=== PATIENT | female | born 1980 | race Caucasian/White ===

== ENCOUNTER → 2020-03-20 09:51 | Outpatient (CLI) | payer BC, SELFPAY ==
--- NOTE | 2020-03-20 09:53 | VDLE_ITS ---
Reason For Study: Pain, Swelling RIGHT LEFT CFV is compressible, spontaneous, phasic, CFV is compressible, spontaneous, phasic, competent and demonstrates normal competent, and demonstrates normal augmentation. augmentation. FV is compressible, spontaneous, phasic, FV is compressible, spontaneous, phasic, competent and demonstrates normal competent and demonstrates normal augmentation. augmentation. POP V is compressible, spontaneous, phasic, POP V is compressible, spontaneous, phasic, competent and demonstrates normal competent and demonstrates normal augmentation. augmentation. T/P Trunk is compressible. T/P Trunk is compressible. PTV is compressible. PTV is compressible. RT PerV is compressible. LT PerV is compressible. SFJ is INCOMPETENT and measures 0.88 x 0.98 GSV previous EVLA. cm. SFJ is INCOMPETENT and measures 0.82 x 0.81 GSV proximal thigh measures 0.68 x 0.76 cm. cm. GSV at knee measures 0.33 x 0.36 cm. SSV proximal calf is competent and measures GSV INCOMPETENT throughout for greater than 0.29 x 0.29 cm. 0.5 seconds. ASV proximal thigh is INCOMPETENT for greater than 0.5 seconds and measures 0.48 x 0.51 cm. ASV mid thigh is INCOMPETENT for greater than 0.5 seconds and measures 0.29 x 0.22 cm. ASV proximal calf is INCOMPETENT for greater than 0.5 seconds and measures 0.20 x 0.19 cm. SSV proximal calf is competent and measures 0.30 x 0.29 cm. Procedure This is a venous duplex using B-mode, color flow and spectral Doppler. Exam performed in department. Patient was scanned in reverse Trendelenburg position during reflux assessment. Interpretation Summary Bilateral no dvt. Right gsv 7.6 and reflux throughout and ASV 5.1 and reflux. Ordering Physician: Fran Waite Referring Physician: MD Manav Oh Performed By: Lavonne Lovett RVT
== END ==
PROVIDERS: PCP Family Medicine; Referring Provider Surgery Vascular Surgery; Visit Provider Surgery Vascular Surgery
DX: M79.89 Other specified soft tissue disorders (principal); M79.606 Pain in leg, unspecified
CPT/HCPCS: 93970

== ENCOUNTER → 2021-06-19 | Outpatient (CLI) | payer BC, SELFPAY | END | disposition home or self-care (01) | LOC: PSN 08:41 | PROVIDERS: PCP Family Medicine; Visit Provider Surgery | DX: Z20.822 Contact with and (suspected) exposure to COVID-19 (principal) | CPT/HCPCS: 87635; C9803; U0003; U0005 ==

== ENCOUNTER 2021-07-06 13:40 | Emergency (ER) | payer BC, SELFPAY ==
[2021-07-06 13:41] VITALS: BP 120/78; PULSE 102; RESP 17; TEMP 37.8; O2SAT 100; BMI 33.8
--- NOTE | 2021-07-06 13:58 | EX.ED.DYSGE1 ---
HPI History of Present Illness Chief Complaint: Fever Detail of Chief Complaint: Fever that started yesterday Informant: patient and spouse/S.O. Narrative Narrative: Patient presents to the emergency department complaint of a fever that started yesterday. Patient started with fatigue yesterday. She denies sore throat or ear pain. She denies chest pain or abdominal pain. She denies vomiting or diarrhea. She had some mild nausea yesterday. Patient with temperature up to 102 during the night. Patient tells me that on June 20 she had venous ablation of her right leg. She complains of some pain and swelling in the leg. Patient's surgeon called and asked that we evaluate the patient and development writer to have a venous Doppler done tomorrow as this not available this afternoon. Patient denies any chest pain or shortness of breath. Patient did take a home COVID test last evening and was negative. Prior similar symptoms: No PFSH PFSH Home Medications No Known/Unobtainable [No Known Home Medications] 05/21/14 [History Last Taken Unknown] Allergy/AdvReac Type Severity Reaction Status Date / Time No Known Allergies Allergy Verified 07/06/21 13:40 Surgical History (Updated 07/06/21 @ 13:53 by Fanny Lewis) History of orthopedic surgery Social History Smoking Status: Never smoker [facility] ED Constitutional Constitutional ED: Reports systems reviewed and no addt'l complaints, except as documented and fever(s); Denies body ache(s), change in weight or chills Eyes Eyes: Denies acute decrease in peripheral vision, change in vision, double vision or loss of vision ENT ENT ED: Reports none; Denies ear pain, lip swelling, loss taste/smell, neck pain, otalgia or sore throat Cardiovascular Cardiovascular: Reports none; Denies abdominal pain, chest pain with activity, leg edema, lightheadedness, palpitations, rapid heart rate or syncope Respiratory/Chest Respiratory/Chest: Reports none; Denies change in mental status, dry cough, dyspnea, hemoptysis, shortness of breath at rest or shortness of breath with exertion Gastrointestinal Gastrointestinal: Reports none; Denies abdominal pain, change in stool character, diarrhea, hematemesis, hematochezia, melena, rectal bleeding or vomiting Genitourinary Genitourinary ED: Reports none; Denies abdominal discomfort, anuria, dysuria, genital pain or polyuria Musculoskeletal Musculoskeletal: Reports none and other Details: Right leg pain ; Denies arthralgias, back pain, difficulty walking, extremity pain, muscle weakness or myalgias Integumentary Reports none; Denies abscess or rash Neurologic Neurologic: Reports none; Denies abnormal gait, confusion, focal weakness, frequent falls, headache(s), loss of vision, numbness, paresthesias, radicular pain, vertigo or weakness Psychiatric Psychiatric: Reports systems reviewed and no addt'l complaints, except as documented and none; Denies behavioral changes, confusion, difficulty concentrating, hallucinations, suicidal ideation, tactile hallucinations or visual hallucinations Endocrine Endocrinology: Denies none, cold intolerance, excessive sweating, fatigue or heat intolerance Hematologic/Lymphatic Hematologic/Lymphatic: Reports none; Denies anemia, easy bleeding or easy bruising Allergic/Immunologic Allergic/Immunologic ED: Denies as per HPI, none, lip swelling, mouth swelling, throat swelling, tongue swelling or hives EXAM Physical Exam Const Vital Signs: 07/06/21 13:41 07/06/21 13:53 Temperature 100.1 F H Temperature Source Temporal Pulse Rate 102 H Respiratory Rate 17 Respiratory Effort Normal Non-Labored Respiratory Pattern Normal Blood Pressure 120/78 Blood Pressure Mean 92 Pulse Ox 100 Oxygen Delivery Method Room Air Positive well nourished and well developed General Appearance ED: well developed and NAD HEENT Reports TM's clear and moist mucous membranes normocephalic and atraumatic; Negative for trauma or tenderness Tympanic Membrane ED: Yes TM's clear Eyes PERRL and EOMs intact bilaterally General Eye ED: Negative for pale conjunctiva or scleral icterus Neck no lymphadenopathy, supple and no JVD General: Negative for tenderness Chest Wall inspection of chest normal and palpation of chest normal Chest: Negative for tenderness Resp normal respiratory effort and clear to auscultation bilaterally Effort and Inspection: Negative for respiratory distress or pain with movement Auscultation: Negative for rhonchi, wheezes or diminished lung sounds Cardio regular rate, regular rhythm, S1 normal heart sound, S2 normal heart sound and no murmurs Peripheral Pulses: pulses 2+ throughout GI normal to inspection, nondistended, normoactive bowel sounds, soft to palpation, non-tender, non-distended and no masses Back/Spine no CVA tenderness and no thoracic nor lumbar tenderness Extremity Extremity Narrative: Upper midEcchymosis and bruising to the right thigh and lower medial thigh from recent venous ablation. There is no evidence of cellulitic changes. No obvious ropes or cords palpated. General Extremety ED: Negative for edema General Extremity: Negative for edema Neuro oriented x3, CN's II-XII intact bilaterally, no sensory deficits noted and gait normal Sensorium / Orientation: awake, alert, oriented to person, oriented to place and oriented to time Motor Exam: strength 5/5 throughout and strength abnormal Psych mental status grossly normal Skin no rashes or lesions noted and no wounds MDM MDM MDM Narrative Medical decision making narrative: IV line established on arrival. Patient had a CBC with differential that showed a slightly elevated white count of 12.3. Chemistries were unremarkable. Urinalysis was normal. Influenza screen and COVID test were negative. At this point ultrasound not available to perform venous Doppler of right lower extremity. I did give her 20 mg of Xarelto p.o. x1 and I will write her prescription to come back tomorrow morning to have a venous Doppler of the right lower extremity. Patient advised to return if chest pain, shortness of breath, or condition should worsen anyway. Etiology of her fever is unclear although I suspect likely viral etiology. Lab Data Attestation: I reviewed the patient's lab results. Labs: Laboratory Results - last 24 hr 07/06/21 07/06/21 07/06/21 14:18 14:18 14:55 WBC 12.3 H RBC 4.60 Hgb 14.2 Hct 40.5 MCV 88.0 MCH 30.9 MCHC 35.1 RDW Std Deviation 40.2 RDW Coeff of Chapis 12.6 Plt Count 271 MPV 8.9 Immature Gran % (Auto) 0.800 Neut % (Auto) 83.0 H Lymph % (Auto) 8.5 L [place] % (Auto) 6.7 Eos % (Auto) 0.6 Baso % (Auto) 0.4 Absolute Neuts (auto) 10.2 H Absolute Lymphs (auto) 1.05 Nucleated RBC % 0 Sodium 139 Potassium 3.5 Chloride 111 H Carbon Dioxide 20.0 L Anion Gap 8 BUN 9 Creatinine 0.82 Estim Creat Clear Calc 92.00 Est GFR (MDRD) Af Amer 100 Est GFR (MDRD) Non-Af 83 BUN/Creatinine Ratio 11.0 Glucose 114 H Calcium 9.0 Urine Color Yellow Urine Clarity Clear Urine pH 6.0 Ur Specific [place] 1.015 Urine Protein Negative Urine Glucose (UA) Normal Urine Ketones Negative Urine Occult Blood 10 H Urine Nitrite Negative Urine Bilirubin 1 H Urine Urobilinogen 8 H Ur Leukocyte Esterase Negative Urine RBC 0 SEEN Urine WBC 0 SEEN Ur Squamous Epith Cells 0-5 SEEN Urine Bacteria 0 SEEN Urine Mucus 0 SEEN Discharge Plan Triage Chief Complaint: Fever ED Provider: Ron Kolb Dx/Rx/DC Orders Clinical Impression: Fever, Post-op pain, Leg edema, right Instructions: ED FUO Adult, ED Peripheral Edema, Unilateral Prescriptions: No Action No Known Home Medications RF: 0 Other Ambulatory Orders: Venous Duplex US, Unilateral (Routine) Facility: [facility] - Location: [facility] Ordered By: Dr. Ron Kolb Primary Care Provider: Manav Oh Referrals: Isauro Torres MD [STAFF PHYSICIAN] - 3-5 Days Manav Oh MD [Primary Care Provider] - 3-5 Days Disposition Disposition: Home, Self Care
[2021-07-06] MEDS: 0.9% Normal Saline 1,000 ML 150 ML IV (14:14)
[2021-07-06 14:24] LABS: Absolute Lymphocyte Count 1.05 X10^3/uL (0.83-4.51); Absolute Neutrophil Count 10.2 X10^3/uL (2.0-7.7); Basophil# 0.05 X10^3/uL; Basophil% 0.4 % (0-1); Eosinophil# 0.07 X10^3/uL; Eosinophils% 0.6 % (0-5); Hematocrit 40.5 % (37-47); Hemoglobin 14.2 g/dL (12.0-15.0); Lymphocyte # 1.05 X10^3/ul (0.83-4.51); Lymphocyte % 8.5 % (19-41); Mean Corp Hgb Conc 35.1 g/dL (32-36); Mean Corpuscular Hgb 30.9 pg (27.0-32.0); Mean Platelet Vol. 8.9 fl (6.2-12.0); Monocyte# 0.82 X10^3/uL; Monocyte% 6.7 % (0-10); NRBC Flagged by Analyzer 0 % (0-5); Neutrophil # 10.23 X10^3/uL (2.7-7.7); Platelet Count 271 K/mm3 (150-450); RBC Distribution Width CV 12.6 % (11.6-14.6); RBC Distribution Width SD 40.2 fl (35.1-43.9); White Blood Count 12.3 K/mm3 (4.4-11.0)
[2021-07-06] MEDS: Ondansetron 4 MG/2 ML Vial IV (14:24)
[2021-07-06] MEDS: Morphine 4 MG/ML Syringe IV (14:25)
[2021-07-06 14:37] LABS: Anion Gap 8 (5-15); BUN 9 mg/dL (7-18); Chloride 111 mmol/L (98-107); Creatinine, Serum 0.82 mg/dL (0.55-1.02); EST Glomerular Filtration Rate 83 mL/min (>60); Est Glom Filt Rate - Afr Amer 100 mL/min (>60); Glucose 114 mg/dL (74-106); Potassium 3.5 mmol/L (3.5-5.1); Sodium Level 139 mmol/L (136-145)
[2021-07-06 15:05] LABS: Bacteria 0 SEEN /hpf (None Seen); Mucous, Urine 0 SEEN /hpf (<or=2+); Red Blood Cells-Urine 0 SEEN /hpf (0-5); White Blood Cells 0 SEEN /hpf (0-5)
[2021-07-06 15:11] LABS: Color, Urine Yellow (Yellow); Glucose, Dipstick Normal (Normal); Ketone-Dipstick Negative (Negative); Leukocyte Esterase-Dipstick Negative /ul (Negative); Nitrite-Dipstick Negative (Negative); Occult Blood-Urine 10 /ul (Negative); Protein-Dipstick Negative (Negative); Specific Gravity, Urine 1.015 (1.002-1.030); Urine Clarity Clear (Clear); Urine Urobilinogen 8 mg/dl (Normal)
[2021-07-06 15:20] LABS: Urine Bilirubin Dipstick 1 mg/dL (Negative)
[2021-07-06 15:22] LABS: Squamous Epithelial Cells - UA 0-5 SEEN /hpf (5-10)
[2021-07-06] MEDS: Rivaroxaban 20 MG Tablet PO (16:18)
[2021-07-06 16:21] VITALS: PULSE 108; RESP 17; O2SAT 95
== END 2021-07-06 16:23 | disposition home or self-care (01) ==
PROVIDERS: Emergency Provider Emergency Medicine; PCP Family Medicine; Visit Provider Emergency Medicine
DX: R50.9 Fever, unspecified (principal); M79.604 Pain in right leg; R60.0 Localized edema; Z20.822 Contact with and (suspected) exposure to COVID-19; G89.18 Other acute postprocedural pain
CPT/HCPCS: 80048; 81001; 85025; 87428; 96361; 96374; 96375; 99284; J7030; A4216; J2405

== ENCOUNTER 2021-07-07 11:59 | Inpatient (IN) | payer BC, SELFPAY ==
--- NOTE | 2021-07-07 12:20 | HP.PCM.HOS_ITS ---
HPI - General General Date of Admission: 07/07/21 Date of Service: 07/07/21 Chief Complaint: Fever, fatigue, malaise HPI Narrative The patient is a 41 y/o F w/ PMHx: Obesity, Chronic migraines, Anxiety and Depression, recently presented to the [facility] ED initially on 07/06/21 following recent RLE vascular intervention specifically right lower extremity venous ablation (~ 17 days prior) per Dr. Torres with increased fatigue and onset of fever that started the day prior on 07/05/2021 with mild associated nausea with poor oral intake reporting a temperature up to 102 during the evening with additionally noted progressively worsening post-operative pain, edema although this has resolved with dyspnea sensation and pleuritic chest discomfort with recent ED evaluation with work-up including T 100.1, HR 108, BP 120/78, RR 17, 95% on RA, CBC w/ WBC 12.3, Hgb 14.2, Plts 271 with mild L shift, UA unremarkable, BMP Na 139, K 3.5, Chl 111, CO2 20, BUN/Cr 8/0.82, negative rapid antigen/influenza. Patient was written for venous Doppler ultrasound to be performed on 07/07/2021 with no acute DVT or concerning findings with successful ablation per Dr. Torres. Dr. Torres requested that patient be directly admitted secondary to fever of unclear source and noted concern that she was very ill appearing. She does report improvement of her RLE swelling with elevation and Dr. Torres notes the leg looks as expected post procedure without any evidence of cellulitis. She reports a mild frontal headache without marked light or sound sensitivitity. She reports no emesis, diarrhea, body aches, alteration to sense of taste/smell. She does report earlier during the week she did have her routine botox injections for migraines. Patient notes receiving 1 Moderna vaccination and states she did have COVID in January 2021 but had very mild symptoms. [facility] Medical History (Updated 07/07/21 @ 12:40 by Lilia Gonzalez) Anxiety Anxiety and depression Chronic migraine Depression Former smoker Former tobacco use Migraines Obesity Venous incompetence Home Medications drospirenone-ethinyl estradiol 1 tab PO DAILY 07/07/21 [History Last Taken 07/06/21] oxycodone-acetaminophen 1 tab PO Q6H PRN PRN 07/07/21 [History Last Taken Unknown] paroxetine HCl [Paxil] 20 mg PO QHS 07/07/21 [History Last Taken 07/06/21] topiramate [Topamax] 100 mg PO QHS 07/07/21 [History Last Taken 07/06/21] Allergy/AdvReac Type Severity Reaction Status Date / Time No Known Allergies Allergy Verified 07/06/21 13:40 Family History (Updated 07/07/21 @ 12:[address] Twyla Au MD) Mother Thyroid cancer Thyroid disorder Father CVA (cerebral vascular accident) Hypertension Surgical History (Updated 07/07/21 @ 12:[address] Twyla Au MD) History of orthopedic surgery Previous section S/P cholecystectomy Status post laser ablation of incompetent vein Social History (Updated 07/07/21 @ 12:[address] Twyla Au MD) household members: spouse Smoking Status: Former smoker how long ago did patient quit smoking: Patient quit daily 1/2-1ppd cig tob use 16 yrs ago, still occasional 1-2. alcohol intake: current alcohol intake frequency: a few times a month substance use type: does not use ROS ROS Narrative Admission Review of Systems: CONSTITUTIONAL: No weight loss, + fever, weakness or fatigue. HEENT: Headache. Eyes: No visual loss, blurred vision, double vision or yellow sclerae. Ears, Nose, Throat: No hearing loss, sneezing, congestion, runny nose or sore throat. SKIN: No rash or itching, lesions, wounds. CARDIOVASCULAR: + Pleuritic discomfort, transient RLE edema. No palpitations, orthopnea, syncopal events. RESPIRATORY: + Shortness of breath, No cough or sputum, wheezing, hemoptysis. GASTROINTESTINAL: + Anorexia, nausea, No vomiting or diarrhea, abdominal pain, melena, BRBPR. GENITOURINARY: No dysuria, frequency, urgency or retention. NEUROLOGICAL: + headache, No dizziness, syncope, paralysis, ataxia, numbness or tingling in the extremities, focal weakness, change in bowel or bladder control, seizure. MUSCULOSKELETAL: + muscle, back pain, joint pain or stiffness. HEMATOLOGIC: No anemia, bleeding or bruising. LYMPHATICS: No enlarged nodes. No history of splenectomy. PSYCHIATRIC: + history of depression or anxiety. ENDOCRINOLOGIC: No reports of sweating, cold or heat intolerance. No polyuria or polydipsia. ALLERGIES: No history of asthma, hives, eczema or rhinitis. Physical Exam Narrative Physical Examination: General: Awake, alert, oriented x 3 and cooperative, seated upright in the Vascular bed, fatigued appearing but not toxic appearing. Skin: Normal color, normal turgor, no icterus, no cyanosis except recent RLE venous intervention, no evidence of any erythema, no marked edema. HEENT: AT/NC, EOMI, PERRLA, mildly dry MM, no carotid bruits or JVD noted. Lungs: Diminished, > bases, decreased effort as noting pleuritic discomfort with increased effort, no rales, ronchi or wheezing. Heart: Mildly tachycardic with regular rhythm; no gallop, rub audible. Abdomen: Soft, obese, NTTP, ND, distant normal BS, no HSM. Extremities: No cyanosis, clubbing, or edema. RLE w/ recent vascular intervention as noted noted, see skin. Neurological: Patient awake, alert, oriented as noted, cognitive function intact; pupils equally reactive to light and accommodation, cranial nerves II- XII grossly normal, moving all 4 extremities, no focal deficits, strength mildly to moderately globally decreased. Psychiatric: Affect appears fatigued, no acute evidence of depressive or anxiety feelings. Results Lab / Micro Data Result Diagrams: 07/07/21 13:10 07/07/21 13:10 Assessment & Plan Assessment/Plan (1) Fever, unknown origin: PLAN: The patient is a 41 y/o F w/ PMHx: Obesity, Chronic migraines, Anxiety and Depression, recently presented to the [facility] ED initially on 07/06/21 following recent RLE vascular intervention specifically right lower extremity venous ablation (~ 17 days prior) per Dr. Torres with increased fatigue and onset of fever that started the day prior on 07/05/2021 with mild associated nausea with poor oral intake reporting a temperature up to 102 during the evening with additionally noted progressively worsening post-operative pain, edema although this has resolved with dyspnea sensation and pleuritic chest discomfort prompting 07/07/21 Dr. Torres request for direct admission. #1. Fever, malaise, dyspnea unclear origin: Patient with unremarkable ED work- up the day prior with negative rapid influenza and COVID, no obvious evidence of infection of the right lower extremity with recent ablation, will admit to in [place] surgical floor per Dr. Torres request, repeat CBC, CMP, obtain procalcitonin, obtain PCR COVID, obtain full respiratory panel, given pleuritic discomfort of the chest and dyspnea sensation per Dr. Torres request will obtain CTPA, continue judicious hydration, blood culture x2 requested, UA request although no urinary symptoms to report. Patient does not appear toxic of note. #2. Chronic migraines: Patient does report she recently had transition of her migraine medicine from sumatriptan to rizatriptan and believes that this may be causing some of her malaise and fatigue, if necessary will utilize sumatriptan. #3. Anxiety and depression: Patient reports being on Paxil however it is not on current list, awaiting clarification. #4. Obesity: Weight loss and lifestyle changes encouraged. #5. Venous incompetence status post recent right lower extremity ablation: Leg well-appearing, duplex not marked appearing, no evidence of any DVT however Dr. Torres requested CTPA be performed which is pending as noted above. #6. Tobacco Abuse: Encouraged cessation, inpatient consultation per RT, NR if desired. #7. DVT prophylaxis: SCDs, Lovenox. Charges/Coding Visit Charges OBSV E&M: 50794 Initial observation care L2
[2021-07-07 12:36] VITALS: BMI 33.5
[2021-07-07 12:57] VITALS: BP 127/58; PULSE 85; RESP 18; TEMP 37.9; O2SAT 98
[2021-07-07] MEDS: 0.9% Normal Saline 1,000 ML 125 ML IV ×2 (13:03→22:12)
[2021-07-07] MEDS: Acetaminophen 325 MG Tablet 650 MG PO ×2 (13:06→19:44)
[2021-07-07 13:20] VITALS: RESP 22; O2SAT 94
[2021-07-07 13:26] LABS: Absolute Lymphocyte Count 0.98 X10^3/uL (0.83-4.51); Absolute Neutrophil Count 10.4 X10^3/uL (2.0-7.7); Basophil# 0.05 X10^3/uL; Basophil% 0.4 % (0-1); Eosinophil# 0.03 X10^3/uL; Eosinophils% 0.2 % (0-5); Hematocrit 36.6 % (37-47); Hemoglobin 12.8 g/dL (12.0-15.0); Lymphocyte # 0.98 X10^3/ul (0.83-4.51); Mean Corpuscular Hgb 30.8 pg (27.0-32.0); Mean Corpuscular Volume 88.2 fL (81-99); Monocyte# 0.67 X10^3/uL; Monocyte% 5.5 % (0-10); NRBC Flagged by Analyzer 0 % (0-5); Neutrophil # 10.36 X10^3/uL (2.7-7.7); Neutrophil % 85.2 % (47-70); Platelet Count 244 K/mm3 (150-450); RBC Distribution Width CV 12.7 % (11.6-14.6); RBC Distribution Width SD 41.1 fl (35.1-43.9); Red Blood Count 4.15 M/mm3 (4.2-5.4); White Blood Count 12.2 K/mm3 (4.4-11.0)
[2021-07-07 13:43] LABS: ALB/GLOB Ratio 0.7 RATIO (0.9-2.4); AST(SGOT) 14 U/L (15-37); Alanine Aminotransfer ALT/SGPT 20 U/L (13-56); Albumin, Serum 3.2 g/dL (3.2-5.0); Alkaline Phosphatase 69 U/L (45-117); Anion Gap 8 (5-15); BUN 7 mg/dL (7-18); BUN/Creat Ratio 10.4 RATIO (10-20); Calcium,Total 8.6 mg/dL (8.5-10.1); Chloride 108 mmol/L (98-107); Creatinine, Serum 0.67 mg/dL (0.55-1.02); EST Glomerular Filtration Rate 103 mL/min (>60); Est Glom Filt Rate - Afr Amer 125 mL/min (>60); Estimated Creatinine Clearance 112.59 ml/min; Globulin 4.7 g/dL (2.2-4.2); Glucose 105 mg/dL (74-106); Potassium 3.4 mmol/L (3.5-5.1); Protein, Total 7.9 g/dL (6.4-8.2); Sodium Level 135 mmol/L (136-145); Troponin-I HS < 3 pg/mL (3.0-54.0)
[2021-07-07 13:50] LABS: Lactic Acid 0.9 mmol/L (0.4-1.9)
[2021-07-07 13:58] LABS: Procalcitonin 0.08 ng/mL (0.00-0.09)
[2021-07-07 14:04] LABS: D-Dimer Quantitative (DVT/PE) 0.88 FEU/ug/m (0.27-0.49)
--- NOTE | 2021-07-07 15:00 | CT_ITS ---
STUDY: CTA CHEST REASON FOR EXAM: Female, 41 years old. suspected PE RADIATION DOSAGE (If Supplied By Facility): CTDIvol = ( 18.67 ) mGy, DLP = ( 1014.8 ) mGycm TECHNIQUE: The examination was performed with the intravenous administration of IV 100mL Isovue-370. Post-processing of the angiographic images was performed, with multiplanar reformation and 3D reconstruction. Individualized dose optimization techniques were used for this CT. COMPARISON: None. FINDINGS: . Suboptimal bolus timing limits evaluation. However despite this limitation there is decreased attenuation within the left lower lobar pulmonary artery on series 2 images 119 through 111. Findings are suspicious for pulmonary embolus at this site measuring 0.66 cm transverse. There is a moderate infiltrate seen extending posteriorly from this site measuring 5 cm transverse by 5 cm AP. There is a small infiltrate in the right lower lobe posterior medially measuring 4 x 3 cm. Small infiltrate further caudally in the right lower lobe measures 2 x 1.5 cm. Normal thoracic aorta and visualized great vessels. There is no demonstrated aortic dissection. Normal heart and pericardium. Normal mediastinum. Normal hilar regions. Normal visualized trachea and bronchi. The lungs are well expanded. Normal pulmonary parenchyma. Normal pleura. Normal chest wall structures. Normal osseous structures. Normal visualized upper abdomen. CT/CTA Chest W/WO Contrast IMPRESSION: Suboptimal bolus timing. Despite this limitation there are findings suggestive of left lower lobar pulmonary artery filling defect consistent with pulmonary embolus. Repeat examination should be considered if clinically warranted. Moderate bilateral infiltrates most pronounced within the left lower lobe with additional small infiltrates seen bilaterally. Electronically Signed: Manav Rodriguez MD at 18:41 EDT ,
[2021-07-07] MEDS: Ketorolac 30 MG/ML Syringe IV (15:37)
[2021-07-07] MEDS: DiphenhydrAMINE 50 MG/ML Syringe 25 MG IV (15:38)
[2021-07-07] MEDS: Potassium Chloride Oral Tablet 20 MEQ 40 MEQ PO (15:40)
[2021-07-07 15:41] LABS: Magnesium 1.9 mg/dL (1.6-2.6)
[2021-07-07 16:01] LABS: Mucous, Urine 0 SEEN /hpf (<or=2+)
[2021-07-07 16:07] LABS: Color, Urine Yellow (Yellow); Glucose, Dipstick Normal (Normal); Ketone-Dipstick 15 mg/dl (Negative); Leukocyte Esterase-Dipstick 25 /ul (Negative); Nitrite-Dipstick Negative (Negative); Occult Blood-Urine Negative /ul (Negative); Protein-Dipstick 15 mg/dl (Negative); Urine Bilirubin Dipstick Negative (Negative); Urine Clarity Cloudy (Clear); Urine Urobilinogen 8 mg/dl (Normal)
[2021-07-07 16:19] LABS: Red Blood Cells-Urine 0-5 SEEN /hpf (0-5); Squamous Epithelial Cells - UA 0-5 SEEN /hpf (5-10); White Blood Cells 0-5 SEEN /hpf (0-5)
[2021-07-07 16:20] LABS: Bacteria RARE /hpf (None Seen)
[2021-07-07] MEDS: SUMAtriptan 6 MG/0.5 ML Vial SC (16:57)
[2021-07-07 17:28] VITALS: BP 102/47; PULSE 87; RESP 16; TEMP 37.2; O2SAT 98
[2021-07-07 19:39] VITALS: BP 128/62; PULSE 96; RESP 18; TEMP 39; O2SAT 98
[2021-07-07] MEDS: oxyCODONE 5 MG Tablet PO (19:43)
[2021-07-07] MEDS: Paroxetine 20 MG Tablet PO (22:29)
[2021-07-07] MEDS: Topiramate 100 MG Tablet PO (22:29)
[2021-07-07] MEDS: levoFLOXacin IV 750 MG/150 ML BAG 100 MG IV (22:30)
[2021-07-07] MEDS: Enoxaparin 100 MG/ML Syringe SC (22:30)
[2021-07-07 22:44] VITALS: BP 111/65; PULSE 95; RESP 16; TEMP 37.9; O2SAT 100
[2021-07-08] VITALS (12 sets, daily range): BP systolic 101–120; BP diastolic 60–76; PULSE 70–97; RESP 16–22; TEMP 36.9–39.6; O2SAT 95–100
[2021-07-08] MEDS: SUMAtriptan 6 MG/0.5 ML Vial SC (00:17)
[2021-07-08] MEDS: Acetaminophen 325 MG Tablet 650 MG PO ×3 (00:36→22:06)
[2021-07-08] MEDS: Ibuprofen 400 MG Tablet PO ×3 (01:42→17:30)
[2021-07-08] MEDS: oxyCODONE 5 MG Tablet PO ×4 (02:16→22:06)
[2021-07-08] MEDS: MELATONIN 3 MG TABLET PO (02:17)
[2021-07-08 06:08] LABS: Absolute Lymphocyte Count 1.17 X10^3/uL (0.83-4.51); Basophil# 0.05 X10^3/uL; Basophil% 0.5 % (0-1); Eosinophil# 0.03 X10^3/uL; Eosinophils% 0.3 % (0-5); Hematocrit 34.9 % (37-47); Lymphocyte # 1.17 X10^3/ul (0.83-4.51); Lymphocyte % 10.6 % (19-41); Mean Corp Hgb Conc 34.4 g/dL (32-36); Mean Corpuscular Hgb 30.8 pg (27.0-32.0); Mean Corpuscular Volume 89.7 fL (81-99); Mean Platelet Vol. 9.4 fl (6.2-12.0); Monocyte# 0.68 X10^3/uL; Monocyte% 6.2 % (0-10); NRBC Flagged by Analyzer 0 % (0-5); Neutrophil # 9.01 X10^3/uL (2.7-7.7); Neutrophil % 81.4 % (47-70); Platelet Count 217 K/mm3 (150-450); RBC Distribution Width CV 12.7 % (11.6-14.6); RBC Distribution Width SD 41.3 fl (35.1-43.9); Red Blood Count 3.89 M/mm3 (4.2-5.4); White Blood Count 11.1 K/mm3 (4.4-11.0)
[2021-07-08 06:41] LABS: ALB/GLOB Ratio 0.6 RATIO (0.9-2.4); AST(SGOT) 11 U/L (15-37); Alanine Aminotransfer ALT/SGPT 16 U/L (13-56); Albumin, Serum 2.8 g/dL (3.2-5.0); Alkaline Phosphatase 65 U/L (45-117); Anion Gap 8 (5-15); BUN 6 mg/dL (7-18); BUN/Creat Ratio 8.9 RATIO (10-20); Calcium,Total 8.3 mg/dL (8.5-10.1); Chloride 116 mmol/L (98-107); Creatinine, Serum 0.67 mg/dL (0.55-1.02); EST Glomerular Filtration Rate 103 mL/min (>60); Est Glom Filt Rate - Afr Amer 125 mL/min (>60); Estimated Creatinine Clearance 112.59 ml/min; Globulin 4.6 g/dL (2.2-4.2); Glucose 158 mg/dL (74-106); Potassium 3.1 mmol/L (3.5-5.1); Protein, Total 7.4 g/dL (6.4-8.2); Sodium Level 140 mmol/L (136-145)
[2021-07-08] MEDS: 0.9% Normal Saline 1,000 ML 125 ML IV (07:29)
[2021-07-08] MEDS: Potassium Chloride Oral Tablet 20 MEQ 60 MEQ PO (08:45)
[2021-07-08] MEDS: 0.9% Saline Lock 10 ML Syringe IV ×2 (08:46→15:02)
[2021-07-08] MEDS: Enoxaparin 100 MG/ML Syringe SC ×2 (08:46→22:03)
--- NOTE | 2021-07-08 10:28 | PCM.PN.HOSP ---
Documented by User: Dorina Sesay CURING OVEN ATTENDANT, CURING OVEN ATTENDANT-C 07/08/21 10:43 Subjective Subjective Patient seen and examined. Reports fever, chills. Intermittent nonproductive cough. Denies shortness of breath. Objective Data Objective Data Vital Signs: Vital Signs Temp Pulse Resp BP Pulse Ox 99.3 F H 88 20 H 112/70 97 07/08/21 10:10 07/08/21 10:10 07/08/21 10:10 07/08/21 10:10 07/08/21 10:10 Oxygen Delivery Method Room Air Weight: 220 lb 12.8 oz Body Mass Index (BMI) 33.5 Intake & Output: Intake and Output for Last 24 Hours 07/06/21 07/07/21 07/08/21 23:59 23:59 23:59 Intake Total 1950.00 / 2100.00 1316.67 / 1316.67 Output Total 250 / 250 Balance 1700.00 / 1850.00 1316.67 / 1316.67 Lab / Micro Data Result Diagrams: 07/08/21 05:30 07/08/21 05:30 Labs: Laboratory Results - last 24 hr 07/07/21 13:10: WBC 12.2 H, RBC 4.15 L, Hgb 12.8, Hct 36.6 L, MCV 88.2, MCH 30.8, MCHC 35.0, RDW Std Deviation 41.1, RDW Coeff of Chapis 12.7, Plt Count 244, MPV 9.0, Immature Gran % (Auto) 0.700, Neut % (Auto) 85.2 H, Lymph % (Auto) 8.0 L, [place] % (Auto) 5.5, Eos % (Auto) 0.2, Baso % (Auto) 0.4, Absolute Neuts (auto) 10.4 H, Absolute Lymphs (auto) 0.98, Nucleated RBC % 0 07/07/21 13:10: Sodium 135 L, Potassium 3.4 L, Chloride 108 H, Carbon Dioxide 19.0 L, Anion Gap 8, BUN 7, Creatinine 0.67, Estim Creat Clear Calc 112.59, Est GFR (MDRD) Af Amer 125, Est GFR (MDRD) Non-Af 103, BUN/Creatinine Ratio 10.4, Glucose 105, Calcium 8.6, Total Bilirubin 0.60, AST 14 L, ALT 20, Alkaline Phosphatase 69, Troponin I High Sens < 3 L, Total Protein 7.9, Albumin 3.2, Globulin 4.7 H, Albumin/Globulin Ratio 0.7 L 07/07/21 13:10: Procalcitonin 0.08 07/07/21 13:10: D-Dimer Quant (PE/DVT) 0.88 H* 07/07/21 13:10: Lactic Acid 0.9 07/07/21 13:10: Magnesium 1.9 07/07/21 13:21: COVID-19 (LILIAM) Not Detected 07/07/21 15:45: Urine Color Yellow, Urine Clarity Cloudy, Urine pH 6.0, Ur Specific [place] 1.010, Urine Protein 15 H, Urine Glucose (UA) Normal, Urine Ketones 15 H, Urine Occult Blood Negative, Urine Nitrite Negative, Urine Bilirubin Negative, Urine Urobilinogen 8 H, Ur Leukocyte Esterase 25 H, Urine RBC 0-5 SEEN, Urine WBC 0-5 SEEN, Ur Squamous Epith Cells 0-5 SEEN, Urine Bacteria RARE, Urine Mucus 0 SEEN 07/08/21 05:30: WBC 11.1 H, RBC 3.89 L, Hgb 12.0, Hct 34.9 L, MCV 89.7, MCH 30.8, MCHC 34.4, RDW Std Deviation 41.3, RDW Coeff of Chapis 12.7, Plt Count 217, MPV 9.4, Immature Gran % (Auto) 1.000 H, Neut % (Auto) 81.4 H, Lymph % (Auto) 10.6 L, [place] % (Auto) 6.2, Eos % (Auto) 0.3, Baso % (Auto) 0.5, Absolute Neuts (auto) 9.0 H, Absolute Lymphs (auto) 1.17, Nucleated RBC % 0 07/08/21 05:30: Sodium 140, Potassium 3.1 L, Chloride 116 H, Carbon Dioxide 16.0 L, Anion Gap 8, BUN 6 L, Creatinine 0.67, Estim Creat Clear Calc 112.59, Est GFR (MDRD) Af Amer 125, Est GFR (MDRD) Non-Af 103, BUN/Creatinine Ratio 8.9 L, Glucose 158 H, Calcium 8.3 L, Total Bilirubin 0.50, AST 11 L, ALT 16, Alkaline Phosphatase 65, Total Protein 7.4, Albumin 2.8 L, Globulin 4.6 H, Albumin/Globulin Ratio 0.6 L Micro: Microbiology 07/07/21 13:21 Mucosa - Nose Respiratory Panel (PCR) - Final Radiography Diagnostic Testing: Radiology Impression Chest CTA 07/07/21 15:00 IMPRESSION: Suboptimal bolus timing. Despite this limitation there are findings suggestive of left lower lobar pulmonary artery filling defect consistent with pulmonary embolus. Repeat examination should be considered if clinically warranted. Moderate bilateral infiltrates most pronounced within the left lower lobe with additional small infiltrates seen bilaterally. Electronically Signed: Manav Rodriguez MD at 18:41 EDT , Physical Exam Const alert, oriented x3 and no apparent distress Orientation / Consciousness: awake, oriented to person, oriented to place and oriented to time HEENT normocephalic and moist oral mucous membranes Eyes PERRL, EOMs intact bilaterally and conjunctivae normal Neck no lymphadenopathy Resp clear to auscultation bilaterally Auscultation: diminished lung sounds Cardio regular rate, regular rhythm and no murmurs Peripheral Pulses: pulses 2+ throughout GI normal to inspection, nondistended, normoactive bowel sounds, non-tender and non-distended Extremity normal to inspection Skin no rashes or lesions noted Lesions: no lesions Rashes: no rashes Trauma: no lacerations or abrasions Neuro CN's II-XII intact bilaterally, no focal motor deficits, no sensory deficits noted and deep tendon reflexes 2+ bilaterally Psych mental status grossly normal Mood & Affect: flat affect Assessment & Plan Assessment/Plan (1) Fever: PLAN: 1. Acute PE-D-dimer elevated. Duplex lower extremities negative for DVT. CTA with suboptimal bolus timing however suggestive of left lower lobe pulmonary embolism. Therapeutic Lovenox with transition to oral regimen at discharge. 2. Fever, possible left lower lobe pneumonia versus secondary to #1-viral panel negative. Obtain sputum culture. IV Levaquin. Albuterol and DuoNeb aerosols. CTA with moderate bilateral infiltrates more pronounced in the left lower lobe. 3. Chronic migraines-recent transition from sumatriptan to rizatriptan. 4. Anxiety/depression-continue paroxetine. 5. Obesity- diet and lifestyle modifications encouraged. 6. Venous incompetence status post recent right lower extremity ablation 06/20/21- continue follow up with vascular. Duplex negative for DVT. 7. Tobacco dependence- encouraged cessation. DVT prophylaxis-Lovenox This patient was seen by EMILIO CaoC under the supervision of Dr. Vieira. Documented by User: Dr. Leyla Vieira DO 07/08/21 12:47 Subjective Subjective Seen in conjunction with Dorina Sesay NP. The following represents my independent history and physical examination. Please see below for addendum the above. Patient reports she slept poorly overnight. She indicates she has had continued fevers. She complains of chest and back pain that is pleuritic in nature. She denies any specific shortness of breath. T-max overnight was 103.2. She is maintained on room air with oxygen saturations 97 to 100%. Objective Data Lab / Micro Data Result Diagrams: 07/08/21 05:30 07/08/21 05:30 Physical Exam Const alert and oriented x3 Constitutional Narrative: Middle-aged white female lying in bed in left side-lying, appears if she is not feeling well however does not appear toxic, is not all that interested in engaging in significant interaction Exam Limitations: no limitations Nutritional Appearance: obese HEENT head/scalp atraumatic and moist oral mucous membranes HEENT Narrative: Mallampati 2-3, no thrush, dentition is good Head and Scalp: normocephalic Resp normal respiratory effort, no retractions, no use of accessory muscles and clear to auscultation bilaterally Auscultation: Negative for crackles, rales, rhonchi or wheezes Cardio regular rate, regular rhythm, S1 normal heart sound, S2 normal heart sound, no murmurs, no rub, no gallops, no clicks and no JVD GI normal to inspection, nondistended, normoactive bowel sounds, soft to palpation, non-tender and non-distended; Negative for hepatosplenomegaly Extremity no clubbing, cyanosis or edema Peripheral Pulses: Yes pulses 2+ throughout Neuro oriented x3, CN's II-XII intact bilaterally, moves all extremities and no focal motor deficits Sensorium / Orientation: awake and alert Speech: speech normal Assessment & Plan Assessment/Plan (1) Fever: (2) Pulmonary embolism: (3) Pneumonia: (4) Leukocytosis: (5) Hypokalemia: PLAN: Assessment: Acute pulmonary embolism Fever Hypokalemia Leukocytosis Venous incompetence status post recent right lower extremity ablation 06/20/2021 Chronic migraines Obesity Tobacco abuse Anxiety Depression Plan: -CT of her chest shows bilateral lower lobe infiltrates left greater than right -Sputum culture ordered and pending -Strep pneumo and Legionella antigens pending -Blood cultures pending with ongoing fever -Continue Levaquin for now -Patient remains on room air -Patient with continued fevers--> factious work-up is pending and antibiotics are on board -Procalcitonin is low -Repeat CBC and BMP in a.m. -Potassium replacement in progress -Repeat BMP and magnesium level in a.m. -Would recommend holding home control pills at discharge -Discussed with patient -CTA is suggestive of PE however timing is not great but defects are noted -With elevated D-dimer and appearance of above we will continue anticoagulation and would recommend full anticoagulation for 3 to 6 months as well as discontinuing her control for the time being Charges/Coding Visit Charges Inpatient E&M: 49998 Subs Hosp L2
--- NOTE | 2021-07-08 12:15 | CASEMGMT ---
TACO RODRIGUEZ Assessment: Face to Face with pt for initial transition planning/care coordination assessment. RN MICHAEL introduced self and role at [facility], pt voices understanding and consents to assessment. Pt is O x4 and answers all questions appropriately at this time, kept eyes closed for assessment. Care providers, pharmacy, and demographics verified/updated. Admitting Dx: leg edema, FUO PCP:Althea Specialists:Torres, vascular and Aislinn for migraines Preferred [facility]acy: [facility] Insurance: [employer] Prescription Benefit: yes LW/HPOA: Pt states she thinks she has a LW/DPOA and her DPOA is her . She is aware this is not on file at [facility] and she may bring in to be scanned into her chart. LNOK: Thomas Moy, ; Vivian Chinmay, MIL Living Arrangements: Pt lives with and two children in a two story house with two steps to enter. Pt reports she is I in ADL's and denies concerns at home. Transportation: Pt drives self and denies concerns with transportation. DME/HHC/SNF: Pt has crutches at home but does not use AD. Pt denies hx of HHC or SNF stays. Pt states no concerns with going home at time of dc. Pt states no further concerns/needs. CM to follow. Advised pt to ask CM if any further question/concerns/needs arise, voices understanding. Pt Goal: Home Plan: Home
[2021-07-08] MEDS: dexAMETHasone 10 MG/ML Vial IV (15:03)
[2021-07-08] MEDS: levoFLOXacin IV 750 MG/150 ML BAG 100 MG IV (22:03)
[2021-07-08] MEDS: Paroxetine 20 MG Tablet PO (22:03)
[2021-07-08] MEDS: Topiramate 100 MG Tablet PO (22:03)
[2021-07-09 02:00] VITALS: BP 116/65; PULSE 52; RESP 18; TEMP 36.6; O2SAT 97
[2021-07-09 05:06] LABS: Absolute Lymphocyte Count 1.11 X10^3/uL (0.83-4.51); Absolute Neutrophil Count 6.2 X10^3/uL (2.0-7.7); Basophil# 0.04 X10^3/uL; Basophil% 0.5 % (0-1); Eosinophil# 0.02 X10^3/uL; Eosinophils% 0.2 % (0-5); Hematocrit 36.7 % (37-47); Hemoglobin 12.3 g/dL (12.0-15.0); Lymphocyte # 1.11 X10^3/ul (0.83-4.51); Lymphocyte % 13.7 % (19-41); Mean Corp Hgb Conc 33.5 g/dL (32-36); Mean Corpuscular Hgb 29.7 pg (27.0-32.0); Mean Corpuscular Volume 88.6 fL (81-99); Mean Platelet Vol. 9.9 fl (6.2-12.0); Monocyte# 0.64 X10^3/uL; Monocyte% 7.9 % (0-10); NRBC Flagged by Analyzer 0 % (0-5); Neutrophil # 6.18 X10^3/uL (2.7-7.7); Neutrophil % 76.5 % (47-70); Platelet Count 214 K/mm3 (150-450); RBC Distribution Width CV 12.7 % (11.6-14.6); RBC Distribution Width SD 41.4 fl (35.1-43.9); Red Blood Count 4.14 M/mm3 (4.2-5.4); White Blood Count 8.1 K/mm3 (4.4-11.0)
[2021-07-09] MEDS: oxyCODONE 5 MG Tablet PO (05:30)
[2021-07-09] MEDS: Acetaminophen 325 MG Tablet 650 MG PO (05:30)
[2021-07-09 05:32] LABS: ALB/GLOB Ratio 0.6 RATIO (0.9-2.4); AST(SGOT) 11 U/L (15-37); Alanine Aminotransfer ALT/SGPT 16 U/L (13-56); Albumin, Serum 2.9 g/dL (3.2-5.0); Alkaline Phosphatase 67 U/L (45-117); Anion Gap 8 (5-15); BUN 10 mg/dL (7-18); BUN/Creat Ratio 17.2 RATIO (10-20); Calcium,Total 8.9 mg/dL (8.5-10.1); Chloride 113 mmol/L (98-107); Creatinine, Serum 0.58 mg/dL (0.55-1.02); EST Glomerular Filtration Rate 122 mL/min (>60); Est Glom Filt Rate - Afr Amer 148 mL/min (>60); Estimated Creatinine Clearance 130.06 ml/min; Globulin 4.9 g/dL (2.2-4.2); Glucose 133 mg/dL (74-106); Potassium 3.9 mmol/L (3.5-5.1); Protein, Total 7.8 g/dL (6.4-8.2); Sodium Level 138 mmol/L (136-145)
[2021-07-09 05:34] VITALS: TEMP 37.1
--- NOTE | 2021-07-09 09:03 | PCM.DC ---
Discharge Instructions Diet Discharge Diet: No restrictions Activity Discharge Activity: Return to Normal Activity Dressing / Incision Call your doctor if you observe: Fever of 101 or Higher, Shortness of breath, Dizziness and Chest pain Follow Up Care Test Results: Test results from this visit will be discussed in further detail at your follow-up appointment, if applicable. Discharge Plan Admission Admit Date/Time: 07/07/21 12:16 Primary Reason for Your Visit: PE, pneumonia Attending Provider: Leyla Vieira Primary Care Provider: Manav Oh Consulting Providers: Twyla Au Discharge Orders/Prescriptions Prescriptions: New levofloxacin 750 mg tablet 750 mg PO DAILY 5 Days Qty: 5 RF: 0 Eliquis DVT-PE Treat 30D Start 5 mg (74 tabs) tablets,dose pack 5 mg PO BID Qty: 74 RF: 0 Continued oxycodone-acetaminophen 5-325 mg tablet 1 tab PO Q6H PRN PRN (Reason: Pain) RF: 0 drospirenone-ethinyl estradiol 3-0.03 mg tablet 1 tab PO DAILY RF: 0 paroxetine HCl [Paxil] 20 mg Tablet 20 mg PO QHS RF: 0 topiramate [Topamax] 100 mg Tablet 100 mg PO QHS RF: 0 Referrals / Follow Up: Isauro Torres MD [STAFF PHYSICIAN] - See Referral Note (As scheduled) Manav Oh MD [Primary Care Provider] - In 1 Week Disposition Disposition (needs filled in before D/C Order can be placed): Home, Self Care
--- NOTE | 2021-07-09 09:12 | PCM.DC.SUM ---
Documented by User: Dorina Sesay NP, WIRE TECHNICIAN-C 07/09/21 09:23 Providers Date of Admission: 07/07/21 Date of Discharge: 07/09/21 Primary Care Physician: Dr. Manav Oh MD Reason For Visit: FUO Diagnosis Discharge Diagnosis (1) Fever: Status: Acute Code(s): R50.9 - Fever, unspecified (2) Pulmonary embolism: Status: Acute Code(s): I26.99 - Other pulmonary embolism without acute cor pulmonale (3) Pneumonia: Status: Acute Code(s): J18.9 - Pneumonia, unspecified organism (4) Leukocytosis: Status: Acute Code(s): D72.829 - Elevated white blood cell count, unspecified (5) Hypokalemia: Status: Acute Code(s): E87.6 - Hypokalemia Medications at Discharge Home Medications paroxetine HCl [Paxil] 20 mg PO QHS 07/07/21 topiramate [Topamax] 100 mg PO QHS 07/07/21 apixaban [Eliquis DVT-PE Treat 30D Start] 5 mg PO BID #74 tab 07/09/21 levofloxacin 750 mg PO DAILY 5 Days #5 tab 07/09/21 oxycodone-acetaminophen 1 tab PO Q6H PRN PRN 5 Days #15 tab 07/09/21 Hospital Course Operations None Procedures None Summary of Care Provided Hospital Course: Patient is a 41-year-old female admitted 07/07/21 due to fever, malaise. 1. Acute PE-D-dimer elevated. Duplex lower extremities negative for DVT. CTA with suboptimal bolus timing however suggestive of left lower lobe pulmonary embolism. Transition to Eliquis at discharge 10 mg twice a day for 7 days followed by 5 mg twice a day. Follow-up with PCP in 1 week. Discussed with patient discontinuing oral contraceptive regimen at discharge. 2. Left lower lobe pneumonia-viral panel negative. CTA with moderate bilateral infiltrates more pronounced in the left lower lobe. IV Levaquin during admission, transition to oral Levaquin at discharge to complete 7-day course. Fever and leukocytosis resolved. Follow-up with PCP as noted above. 3. Chronic migraines-recent transition from sumatriptan to rizatriptan. Patient states she has been on oral contraceptives for an extensive period of time to help with her migraines. This was discontinued at discharge as noted above. She does follow with neurology routinely. Recommend following with primary neurologist for additional recommendations regarding migraine treatment/prevention. 4. Anxiety/depression-continue paroxetine. 5. Obesity- diet and lifestyle modifications encouraged. 6. Venous incompetence status post recent right lower extremity ablation 06/20/21- continue follow up with vascular. Duplex negative for DVT. 7. Tobacco dependence- quit daily smoking. Still occasional use. Encouraged cessation. Physical Exam Const alert, oriented x3 and no apparent distress Orientation / Consciousness: awake, oriented to person, oriented to place and oriented to time HEENT normocephalic and moist oral mucous membranes Eyes PERRL, EOMs intact bilaterally and conjunctivae normal Neck no lymphadenopathy Resp clear to auscultation bilaterally Auscultation: diminished lung sounds Cardio regular rate, regular rhythm and no murmurs Peripheral Pulses: pulses 2+ throughout GI normal to inspection, nondistended, normoactive bowel sounds, non-tender and non-distended Extremity normal to inspection Skin no rashes or lesions noted Lesions: no lesions Rashes: no rashes Trauma: no lacerations or abrasions Neuro CN's II-XII intact bilaterally, no focal motor deficits, no sensory deficits noted and deep tendon reflexes 2+ bilaterally Psych mental status grossly normal Mood & Affect: Normal affect Patient seen and examined prior to discharge. Physical assessment as noted above. Patient is stable for discharge with follow up recommendations as noted above. This patient was seen by ARELI Cao under the supervision of Dr. Vieira. Weight / BMI Weight Weight: 220 lb 14.451 oz Body Mass Index (BMI) 33.5 ABG / Lab / Microbiology Data Result Diagrams: 07/09/21 04:19 07/09/21 04:19 Laboratory: Laboratory Results - last 24 hr 07/09/21 04:19: WBC 8.1, RBC 4.14 L, Hgb 12.3, Hct 36.7 L, MCV 88.6, MCH 29.7, MCHC 33.5, RDW Std Deviation 41.4, RDW Coeff of Chapis 12.7, Plt Count 214, MPV 9.9, Immature Gran % (Auto) 1.200 H, Neut % (Auto) 76.5 H, Lymph % (Auto) 13.7 L, [place] % (Auto) 7.9, Eos % (Auto) 0.2, Baso % (Auto) 0.5, Absolute Neuts (auto) 6.2, Absolute Lymphs (auto) 1.11, Nucleated RBC % 0 07/09/21 04:19: Sodium 138, Potassium 3.9, Chloride 113 H, Carbon Dioxide 17.0 L, Anion Gap 8, BUN 10, Creatinine 0.58, Estim Creat Clear Calc 130.06, Est GFR (MDRD) Af Amer 148, Est GFR (MDRD) Non-Af 122, BUN/Creatinine Ratio 17.2, Glucose 133 H, Calcium 8.9, Total Bilirubin 0.30, AST 11 L, ALT 16, Alkaline Phosphatase 67, Total Protein 7.8, Albumin 2.9 L, Globulin 4.9 H, Albumin/Globulin Ratio 0.6 L Microbiology: Microbiology 07/07/21 13:30 Blood Culture (Wb) - Anticubital Right Blood Culture - Preliminary No growth in 48 hours. 07/07/21 13:10 Blood Culture (Wb) - Anticubital Right Blood Culture - Preliminary No growth in 48 hours. 07/08/21 16:10 Urine, Clean Catch Legionella Antigen - Final 07/08/21 16:10 Urine, Clean Catch Streptococcus pneumoniae Antigen (M - Final 07/07/21 13:21 Mucosa - Nose Respiratory Panel (PCR) - Final D/C Instructions Discharge Diet: No restrictions Call your doctor if you observe: Fever of 101 or Higher, Shortness of breath, Dizziness and Chest pain Meaningful Use Info Meaningful Use Diagnoses (Choose all that apply): VTE VTE Anticoag overlap given w/in hospital stay or rx'd at me?: Yes Pt receive overlap for 5 days?: Yes Discharge Plan Admission Admit Date/Time: 07/07/21 12:16 Primary Reason for Your Visit: PE, pneumonia Attending Provider: Leyla Vieira Primary Care Provider: Manav Oh Consulting Providers: Twyla Au Discharge Orders/Prescriptions Prescriptions: New levofloxacin 750 mg tablet 750 mg PO DAILY 5 Days Qty: 5 RF: 0 Eliquis DVT-PE Treat 30D Start 5 mg (74 tabs) tablets,dose pack 5 mg PO BID Qty: 74 RF: 0 Continued paroxetine HCl [Paxil] 20 mg Tablet 20 mg PO QHS RF: 0 topiramate [Topamax] 100 mg Tablet 100 mg PO QHS RF: 0 oxycodone-acetaminophen 5-325 mg tablet 1 tab PO Q6H PRN PRN (Reason: Pain) 5 Days Qty: 15 RF: 0 Discontinued drospirenone-ethinyl estradiol 3-0.03 mg tablet 1 tab PO DAILY RF: 0 Referrals / Follow Up: Isauro Torres MD [STAFF PHYSICIAN] - See Referral Note (As scheduled) Manav Oh MD [Primary Care Provider] - In 1 Week Disposition Disposition (needs filled in before D/C Order can be placed): Home, Self Care Documented by User: Dr. Leyla Vieira DO 07/09/21 11:43 Providers Date of Admission: 07/07/21 Reason For Visit: FUO Medications at Discharge Home Medications paroxetine HCl [Paxil] 20 mg PO QHS 07/07/21 topiramate [Topamax] 100 mg PO QHS 07/07/21 apixaban [Eliquis DVT-PE Treat 30D Start] 5 mg PO BID #74 tab 07/09/21 levofloxacin 750 mg PO DAILY 5 Days #5 tab 07/09/21 oxycodone-acetaminophen 1 tab PO Q6H PRN PRN 5 Days #15 tab 07/09/21 Hospital Course Operations None Procedures None Summary of Care Provided Minutes Spent on Discharge: 36 Hospital Course: Mrs. Moy is a 41-year-old white female who presents emergency department [facility] on 06/07/2021 with a chief complaint of fever, fatigue, and malaise. The patient had recently undergone a right lower extremity venous ablation on 06/20/[address] Torres and had complained of increased fatigue and onset of fever that started on 07/05/2021. This was associated with mild nausea and poor oral intake. She evidently had a temperature at home up to 102 and noted that she progressively had worsening of postoperative pain in her right leg as well as edema. The edema had resolved but she developed some dyspnea and pleuritic chest discomfort. In the emergency department she had a temperature of 100.1 heart rate of 108, blood pressure 120/78, respiratory rate of 17 and was satting 95% on room air. Her CBC showed a mild leukocytosis with a white count of 12.3 and a left shift. Her UA was unremarkable. Her BNP was overall unimpressive. Rapid flu and COVID were done and were negative. A venous duplex was performed and no acute DVT was noted however given the patient's extreme ill appearance request for admission was made. Given her pleuritic chest pain a D-dimer was obtained and found to be elevated at 0.88. A CTA of her chest was subsequently done and unfortunately had a suboptimal bolus timing however findings were suggestive of a left lower lobe pulmonary artery filling defect consistent with pulmonary embolus. She was maintained on Lovenox with therapeutic dosing and then transition to Eliquis prior to discharge. She also was found to have moderate bilateral infiltrates greater on the left than the right. The patient had ongoing fevers with a T-max of 103 during her hospital course. Cultures were obtained on admission and the patient was placed on broad-spectrum antibiotics. Blood cultures were negative at 48 hours, respiratory PCR was unremarkable, and strep pneumo and Legionella antigens were negative. By the a.m. of 07/09/2021 the patient's white count has resolved and she had been afebrile for almost 24 hours. She felt dramatically better and was anxious to go home. Given her CAT scan showing probable pneumonia and although other work-up negative we will treat her for suspected pneumonia was given a prescription for 5 more days of Levaquin, instructed to discontinue her control pills which were estrogen-based, and given a prescription for apixaban 10 mg p.o. twice daily for 7 days with a transition to 5 mg p.o. twice daily following. We do recommend 3 to 6 months of treatment given that this was likely a provoked PE and have recommended discontinuation of her control indefinitely. 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 She was discharged home in stable condition on 07/09/2021. Discharge diagnoses: Acute pulmonary embolism Fever Hypokalemia-resolved Leukocytosis-resolved Venous incompetence status post recent right lower extremity ablation 06/20/2021 Chronic migraines Obesity Tobacco abuse Anxiety Depression Physical Exam Narrative Patient indicates she is feeling much better and is anxious to go home. Const alert, oriented x3 and no apparent distress Constitutional Narrative: Obese middle-aged white female sitting up in a chair at the bedside, is at bedside, patient appears well and nontoxic at this point General Appearance: cooperative, comfortable, well kempt and well developed Orientation / Consciousness: awake, oriented to person, oriented to place and oriented to time Exam Limitations: no limitations Nutritional Appearance: obese HEENT normocephalic, head/scalp atraumatic, hearing grossly normal bilaterally and moist oral mucous membranes HEENT Narrative: Mallampati 2, no thrush, dentition good Eyes PERRL, EOMs intact bilaterally and conjunctivae normal Neck no lymphadenopathy, supple and no JVD Neck Narrative: Trachea midline, no thyroid enlargement Resp normal respiratory effort, no retractions, no use of accessory muscles and clear to auscultation bilaterally Auscultation: diminished lung sounds; Negative for crackles, rales, rhonchi or wheezes Cardio regular rate, regular rhythm, S1 normal heart sound, S2 normal heart sound, no murmurs, no rub, no gallops, no clicks and no JVD Peripheral Pulses: pulses 2+ throughout GI normal to inspection, nondistended, normoactive bowel sounds, soft to palpation, non-tender and non-distended; Negative for hepatosplenomegaly Extremity normal to inspection and no clubbing, cyanosis or edema Skin no rashes or lesions noted Lesions: no lesions Rashes: no rashes Trauma: no lacerations or abrasions Neuro oriented x3, CN's II-XII intact bilaterally, moves all extremities, no focal motor deficits, no sensory deficits noted and deep tendon reflexes 2+ bilaterally Sensorium / Orientation: awake and alert Speech: speech normal Motor Exam: strength 5/5 throughout Psych mental status grossly normal and affect normal Psych Narrative: Properly interactive Mood & Affect: flat affect ABG / Lab / Microbiology Data Result Diagrams: 07/09/21 04:19 07/09/21 04:19 Discharge Plan Admission Admit Date/Time: 07/07/21 12:16 Primary Reason for Your Visit: PE, pneumonia Attending Provider: Leyla Vieira Primary Care Provider: Manav Oh Consulting Providers: Twyla Au Discharge Orders/Prescriptions Prescriptions: New levofloxacin 750 mg tablet 750 mg PO DAILY 5 Days Qty: 5 RF: 0 Eliquis DVT-PE Treat 30D Start 5 mg (74 tabs) tablets,dose pack 5 mg PO BID Qty: 74 RF: 0 Continued paroxetine HCl [Paxil] 20 mg Tablet 20 mg PO QHS RF: 0 topiramate [Topamax] 100 mg Tablet 100 mg PO QHS RF: 0 oxycodone-acetaminophen 5-325 mg tablet 1 tab PO Q6H PRN PRN (Reason: Pain) 5 Days Qty: 15 RF: 0 Discontinued drospirenone-ethinyl estradiol 3-0.03 mg tablet 1 tab PO DAILY RF: 0 Referrals / Follow Up: Isauro Torres MD [STAFF PHYSICIAN] - See Referral Note (As scheduled) Manav Oh MD [Primary Care Provider] - In 1 Week Disposition Disposition (needs filled in before D/C Order can be placed): Home, Self Care Charges/Coding Visit Charges Inpatient E&M: 10078 Disch Hosp
[2021-07-09 10:00] VITALS: BP 116/76; PULSE 79; RESP 18; TEMP 37.2; O2SAT 100
[2021-07-09] MEDS: APIXABAN 5 MG TABLET 10 MG PO (10:09)
--- NOTE | 2021-07-09 10:13 | CASEMGMT ---
TC to [facility], spoke with pharmacist, cost of eliquis is $160. TACO CM in to pt room, provided pt with eliquis savings card. Pt is aware if this is not affordable, she can speak with her physician at her follow up appt. Pt denies further questions.
== END 2021-07-09 10:30 | disposition home or self-care (01) | DRG 175 ==
LOC: MS3 12:01 → VL 14:31 → MS3 14:33
PROVIDERS: Admitting Provider Family Medicine; PCP Family Medicine; Visit Provider Internal Medicine
DX: I26.99 Other pulmonary embolism without acute cor pulmonale (principal); J18.9 Pneumonia, unspecified organism; G43.709 Chronic migraine without aura, not intractable, without status migrainosus; I83.91 Asymptomatic varicose veins of right lower extremity; E87.6 Hypokalemia; Z20.822 Contact with and (suspected) exposure to COVID-19; F32.A Depression, unspecified; F41.9 Anxiety disorder, unspecified; E66.9 Obesity, unspecified; Z79.899 Other long term (current) drug therapy; Z87.891 Personal history of nicotine dependence; Z68.33 Body mass index [BMI] 33.0-33.9, adult
CPT/HCPCS: 36415; 71275; 80053; 81001; 83605; 83735; 84145; 84484; 85025; 85379; 87040; 87449; 87633; 87635; 99251; J7030; Q9967; A4216; G0463; J3030; U0003; U0005

== ENCOUNTER → 2021-07-07 | Outpatient (CLI) | payer BC, SELFPAY ==
--- NOTE | 2021-07-07 10:00 | VDLE_ITS ---
Version 2 Reason For Study: swelling RIGHT CFV is compressible, spontaneous, phasic, competent and demonstrates normal augmentation. FV is compressible, spontaneous, phasic, competent and demonstrates normal augmentation. POP V is compressible, spontaneous, phasic, competent and demonstrates normal augmentation. T/P Trunk is compressible. PTV is compressible. RT PerV is compressible. GSV is occluded S/P EVLA. Lateral ASV is occluded S/P EVLA. Two additional ASV are occluded S/P EVLA. Procedure This is a venous duplex using B-mode, color flow and spectral Doppler. Exam performed in department. The exam was abbreviated due to the COVID 19 protocol. The exam was diagnostic. A preliminary report was called and/or faxed to Dr. Torres. VL/Venous Duplex US, Unilateral Interpretation Summary Deep veins of the right lower extremity are patent and compressible segmentally . There is no evidence of right lower extremity deep vein thrombosis. Valvular competence jb ears intact within the proximal deep venous system on the right . The right great saphenous vein, anterior accessory saphenous vein, and 2 accessory saphenous veins are occluded, consistent with a recent endothermal venous ablation procedure. Ordering Physician: MD Cortes Warren Referring Physician: Isauro Torres MD Performed By: Aj Medrano, RVT
== END | disposition home or self-care (01) ==
LOC: VL 07-08 08:52
PROVIDERS: PCP Family Medicine; Visit Provider Emergency Medicine
DX: M79.604 Pain in right leg (principal)
CPT/HCPCS: 93971

== ENCOUNTER 2024-08-01 19:15 | Emergency (ER) | payer BC, SELFPAY ==
[2024-08-01 19:16] VITALS: BP 137/96; PULSE 64; RESP 16; TEMP 36.8; O2SAT 100; BMI 32.3
--- NOTE | 2024-08-01 21:29 | EDS_ITS ---
HPI History of Present Illness Chief Complaint: Back Detail of Chief Complaint: Back pain Informant: patient Narrative Narrative: Patient presents to the ER with complaint of back pain that started 4 days ago. She denies injury. She describes it as sharp pain in the upper back midline and little more to the left. At times worse with deep breath. Reminds her somewhat of when she had a PE. Patient denies fever or cough. She denies any lifting or straining. She was seen in the office by PCP today and referred to the ER to rule out PE. She tells me that few days ago felt like her left leg was swollen and had a hard time moving it. She denies pain down the legs or numbness or tingling or weakness in the extremities. PFSH PFSH Medical History Anxiety Anxiety and depression Chronic migraine Depression Former smoker Former tobacco use Migraines Obesity Pulmonary embolism Right knee pain Venous incompetence Home Medications ?Medication ?Instructions ?Recorded ?Last Taken ?Type dextroamphetamine-amphetamine ER PO 09/30/22 Unknown H istory 15 mg 24hr capsule,extend release (Adderall XR) ibuprofen 200 mg tablet 600 mg PO Q6H PRN 09/30/22 U nknown History levothyroxine 75 mcg tablet mcg PO 09/30/22 Unknown Hi story sumatriptan succinate 100 mg tablet mg PO 09/30/22 Unk nown History cyclobenzaprine 10 mg tablet 10 mg PO TID PRN Muscle S pasm #20 08/01/24 Unknown Rx TABLETS hydrocodone-acetaminophen 5-325mg 1 tab PO Q4H PRN PRN Pain 2 days 08/01/24 Unknown Rx 5mg-325mg #14 TABLETS naproxen 500 mg tablet (Naprosyn) 500 mg PO BID PRN pa in #20 tabs 08/01/24 Unknown Rx Allergy/AdvReac Type Severity Reaction Status Date / Time No Known Allergies Allergy Verified 08/01/24 19:19 Family History Mother Thyroid cancer Thyroid disorder Father CVA (cerebral vascular accident) Hypertension Surgical History History of orthopedic surgery Previous section S/P cholecystectomy Status post laser ablation of incompetent vein Social History (Updated 08/01/24 @ 20:47 by Mimi Taylor) household members: spouse housing: house Smoking Status: Former smoker how long ago did patient quit smoking: Patient quit daily 1/2-1ppd cig tob use 16 yrs ago, still occasional 1-2. alcohol intake: current alcohol intake frequency: a few times a month substance use type: does not use ROS ROS ED Review of Systems ROS Unobtainable: other Constitutional Constitutional ED: Reports lethargy; Denies chills, fever(s), sweats or weight loss Eyes Eyes: Denies blurry vision, change in vision or diplopia ENT ENT ED: Denies rhinorrhea or sore throat Cardiovascular Cardiovascular: Denies chest pain, orthopnea or racing heartbeat Respiratory/Chest Respiratory/Chest: Denies cough, dyspnea, dyspnea on exertion, orthopnea or sputum Gastrointestinal Gastrointestinal: Denies abdominal pain, diarrhea, nausea or vomiting Genitourinary Genitourinary ED: Denies dysuria, hematuria or urinary frequency Musculoskeletal Musculoskeletal: Reports back pain; Denies arthralgias, myalgias or neck pain Integumentary Denies abscess, Abrasions or rash Neurologic Neurologic: Denies headache(s) or weakness Psychiatric Psychiatric: Denies anxiety, depression or suicidal thoughts Endocrine Endocrinology: Denies polydipsia, polyphagia or polyuria Hematologic/Lymphatic Hematologic/Lymphatic: Denies easy bleeding, easy bruising or lymphadenopathy Allergic/Immunologic Allergic/Immunologic ED: Denies mouth swelling, tongue swelling or urticaria EXAM Physical Exam Const Vital Signs: 08/01/24 19:16 Temperature 98.2 F Temperature Source Oral Pulse Rate 64 Respiratory Rate 16 Blood Pressure 137/96 H Blood Pressure Mean 109 Pulse Ox 100 Oxygen Delivery Method Room Air Positive well nourished and well developed General Appearance ED: well developed and NAD HEENT Reports TM's clear and moist mucous membranes normocephalic and atraumatic; Negative for trauma or tenderness Tympanic Membrane ED: Yes TM's clear Eyes PERRL and EOMs intact bilaterally General Eye ED: Negative for pale conjunctiva or scleral icterus Neck no lymphadenopathy, supple and no JVD General: Negative for tenderness Chest Wall inspection of chest normal and palpation of chest normal Chest: Negative for tenderness Resp normal respiratory effort and clear to auscultation bilaterally Effort and Inspection: Negative for respiratory distress or pain with movement Auscultation: Negative for rhonchi, wheezes or diminished lung sounds Cardio regular rate, regular rhythm, S1 normal heart sound, S2 normal heart sound and no murmurs Peripheral Pulses: pulses 2+ throughout GI normal to inspection, nondistended, normoactive bowel sounds, soft to palpation, non-tender, non-distended and no masses Back/Spine no CVA tenderness; Negative for no thoracic nor lumbar tenderness Back/Spine Narrative: Patient with tenderness over the thoracic 8 through 10 vertebrae and left paraspinal musculature in a similar distribution. Seems to somewhat reproduce her pain. She has negative straight leg raises. Deep tendon reflexes plus 2 out of 4 bilaterally at the patella and Achilles. She has normal 5 extension. Normal sensation to light touch Extremity normal to inspection General Extremety ED: Negative for edema General Extremity: Negative for edema Neuro oriented x3, CN's II-XII intact bilaterally, no sensory deficits noted and gait normal Sensorium / Orientation: awake, alert, oriented to person, oriented to place and oriented to time Motor Exam: strength 5/5 throughout and strength abnormal Psych mental status grossly normal Skin no rashes or lesions noted and no wounds MDM MDM MDM Narrative Medical decision making narrative: Patient presents with upper back pain x 4 days without trauma. Remote history of PE currently not anticoagulated. Her PCP office had concern for PE and referred to ER. Patient denies recent travel or surgery although they are beba ving for [place] in a few days. Pain is positional somewhat reproducible. In the differential would be musculoskeletal pain versus possibly PE. Patient had an IV line established. She was medicated morphine and Zofran. CTA of the chest was obtained which was negative for PE or dissection or other acute disease process. At this point suspect likely musculoskeletal etiology. Will write a prescription for Flexeril and [place]. Referred to primary care physician for follow-up within the next 3 to 5 days. Lab Data Attestation: I reviewed the patient's lab results. Labs: Laboratory Results - last 24 hr 08/01/24 21:44 Serum , Qual NEGATIVE Radiography Diagnostic Testing: Clinical Impression(s) from Imaging Studies Chest CTA 08/01/24 21:47 IMPRESSION: Normal CTA chest examination, without a demonstrated pulmonary embolism or arterial dissection. Reading Location: [place] [id number] Discharge Plan Triage Chief Complaint: Back ED Provider: Ron Kolb Dx/Rx/DC Orders Clinical Impression: Back pain Instructions: ED Back Pain (Acute or Chronic) Prescriptions: New cyclobenzaprine 10 mg tablet 10 mg PO TID PRN (Reason: Muscle Spasm) Qty: 20 0RF hydrocodone-acetaminophen 5-325 mg tablet 1 tab PO Q4H PRN PRN (Reason: Pain) 2 Days Qty: 14 0RF naproxen [Naprosyn] 500 mg tablet 500 mg PO BID PRN (Reason: pain) Qty: 20 0RF No Action sumatriptan succinate 100 mg tablet PO Patient Comments: take 1 tablet by mouth AT ONSET OF MIGRAINE may repeat IN TWO HOURS IF NEEDED dextroamphetamine-amphetamine [Adderall XR] 15 mg capsule,extended release 24hr PO Patient Comments: take 1 capsule by mouth once daily levothyroxine 75 mcg tablet PO ibuprofen 200 mg tablet 600 mg PO Q6H PRN Primary Care Provider: Manav Oh Referrals: Manav Oh MD [Primary Care Provider] - 3-5 Days Print Language: Ukrainian Disposition Disposition: Home, Self Care
[2024-08-01] MEDS: Morphine 4 MG/ML Syringe IV (21:37)
[2024-08-01] MEDS: Ketorolac 15 MG/ML Vial IV (21:37)
[2024-08-01] MEDS: Ondansetron 4 MG/2 ML Vial IV (21:37)
--- NOTE | 2024-08-01 21:47 | CT_ITS ---
PROCEDURE: CTA CHEST W/WO CONTRAST 08/01/2024 REASON FOR EXAM: BACK PAIN, HX OF PE TECHNIQUE: CTA CHEST W/WO CONTRAST Multiplanar and multisequence images were obtained. Contrast: Contrast dose was not provided at the time of dictation. One or more dose reduction techniques were used (e.g., Automated exposure control, adjustment of the mA and/or kV according to patient size, use of iterative reconstruction technique). RADIATION DOSE SUMMARY: CTDlvol: 15.80 mGy DLP: 544.31 mGycm COMPARISON: None FINDINGS: Normal enhancement of the main pulmonary artery and right and left pulmonary arteries. Normal enhancement of the bilateral peripheral pulmonary arteries. There is no demonstrated pulmonary embolism. Normal thoracic aorta and visualized great vessels. There is no demonstrated aortic dissection. Normal heart and pericardium. Normal mediastinum. Normal hilar regions. Normal visualized trachea and bronchi. The lungs are well expanded. Normal pulmonary parenchyma. Normal pleura. Normal chest wall structures. Normal osseous structures. Normal visualized upper abdomen. The gallbladder is absent. CT/CTA Chest W/WO Contrast IMPRESSION: Normal CTA chest examination, without a demonstrated pulmonary embolism or jodie rial dissection. Reading [facility] [address]
[2024-08-01 22:09] LABS: Internal QC Validated? YES +Cl - CLEAR BKGD; Pregnancy, Serum, hCG Quali. NEGATIVE Negative; Record Kit Lot#, Serum Preg. 947241
[2024-08-01 23:16] VITALS: BP 135/77; PULSE 70; RESP 16; O2SAT 95
[2024-08-01 23:54] VITALS: BP 127/80; PULSE 79; RESP 18; TEMP 37.2; O2SAT 100
== END 2024-08-01 23:56 | disposition home or self-care (01) ==
PROVIDERS: Emergency Provider Emergency Medicine; PCP Family Medicine; Visit Provider Emergency Medicine
DX: M54.9 Dorsalgia, unspecified (principal); Z87.891 Personal history of nicotine dependence
CPT/HCPCS: 71275; 84703; 96374; 96375; 99282; Q9967; A4216; J2405